=== PATIENT | female | born 1955 | race Two or more races ===

== ENCOUNTER → 2016-08-15 | Outpatient (CLI) | payer MEDICAID ==
[~2016-08-15] MED LIST: BACITRACIN15 G1 TP; COREG DPS12.5 MG PO; ECOTRIN81 MG PO; KEFLEX-DPS500 MG PO; LIPITOR40 MG PO; NOVOLIN-N,100 UNITS/ SQ; PHOS-LO667 MG PO; PRILOSEC DPS20 MG PO; RENA-VITE RX T1 EACH PO; SENSIPAR30 MG PO; SYNTHROID150 MCG PO; ZESTRIL DPS5 MG PO
== END | disposition home or self-care (01) ==
LOC: RAD.S 14:36
DX: Z12.31 Encounter for screening mammogram for malignant neoplasm of breast (principal); Z53.9 Procedure and treatment not carried out, unspecified reason